=== PATIENT | male | born 1975 | race Hispanic/Latino ===

== ENCOUNTER 2020-03-09 10:12 | Emergency (ER) | payer SELFPAY ==
[2020-03-09 10:15] VITALS: BP 166/89
[2020-03-09 12:07] LABS: HEMATOCRIT 42.3 % (39.0-50.0); HEMOGLOBIN 14.4 g/dl (14.0-18.0); IMMATURE GRANULOCYTES 0.1 % (0.0-5.0); MEAN CELL VOLUME 89.4 fL CALC (80.0-100.0); MEAN CORPUSCULAR HGB 30.4 pG CALC (26.0-32.0); NEUT# 3.84 thou/uL (1.82-7.42); RED BLOOD COUNT 4.73 mill/uL (4.70-6.10); RED CELL DISTRI WIDTH 13.2 % (11.5-15.5)
[2020-03-09 12:09] LABS: URINE BILIRUBIN - DIPSTICK NEGATIVE (NEGATIVE); URINE BLOOD DIPSTICK NEGATIVE (NEGATIVE); URINE COLOR YELLOW; URINE GLUCOSE - DIPSTICK >=1000 mg/dL (NEGATIVE); URINE KETONE NEGATIVE (NEGATIVE); URINE LEUK ESTERASE NEGATIVE (NEGATIVE); URINE NITRITE - DIPSTICK NEGATIVE (Negative); URINE PH 5.5 (4.5-8.0); URINE PROTEIN - DIPSTICK NEGATIVE (NEG-TRACE); URINE UROBILINOGEN - DIPSTICK 0.2 E.U./dL (0.2)
[2020-03-09 12:23] LABS: ALBUMIN 4.4 g/dL (3.2-5.0); ALKALINE PHOSPHATASE 72 u/l (38-126); ANION GAP 13 (6-22 (CALC)); BILIRUBIN, TOTAL 0.9 mg/dL (0.0-1.4); BUN 11 mg/dL (9-20); BUN/CREATININE RATIO 12 (12-20 (CALC)); CARBON DIOXIDE 25 mmol/l (22-30); CHLORIDE 106 mmol/l (95-108); CREATININE 0.9 mg/dL (0.7-1.3); GFR > 60 ML/MIN (>=60 (CALC)); GFR FOR AFR.AMER. > 60 ML/MIN (>=60 (CALC)); LIPASE 196 u/l (23-300); SGOT/AST 52 u/l (17-59); SODIUM 140 mmol/l (137-146); TOTAL PROTEIN 8.1 g/dL (6.3-8.2)
[2020-03-09] MEDS ORDERED: AMOXICILLIN500 M2 PO (13:14)
== END 2020-03-09 13:45 | disposition home or self-care (01) | DRG 153 ==
LOC: ED 10:12
PROVIDERS: Family Medicine
DX: J06.9 Acute upper respiratory infection, unspecified (principal); E11.9 Type 2 diabetes mellitus without complications; Z20.828 Contact with and (suspected) exposure to other viral communicable diseases

== ENCOUNTER 2020-04-05 12:35 | Emergency (ER) | payer SELFPAY ==
[~2020-04-05] VITALS: Ht 175.3 cm; Wt 87.7 kg
[~2020-04-05 12:35] MED LIST: AMOXICILLIN500 M2 PO
[2020-04-05] MEDS ORDERED: ACTOS15 MG PO (13:26)
[2020-04-05] MEDS ORDERED: JANUMET1 TAB PO (13:26)
[2020-04-05] MEDS ORDERED: ATORVASTATIN CA10 MG PO (13:27)
[2020-04-05 14:27] VITALS: BP 150/86
--- NOTE | 2020-04-07 10:10 | NUR ---
PER JESSICA WISE RN, CONTACTED PATIENT AND GAVE POSITIVE COVID RESULTS. ADVISED PATIENT TO CONTINUE QUARANTINE UNTIL CONTACTED BY [facility]. ADVISED TO RETURN TO ER FOR ANY DIFFICULTY BREATHING OR ANY OTHER NEEDS. PT VERBALIZED UNDERSTANDING.
--- NOTE | 2020-04-07 10:55 | NUR ---
ATTEMPTED TO CONTACT PATIENT WITH COVID TEST RESULTS. DID NOT ANSWER, BUT LEFT VOICEMAIL TO RETURN CALL.
== END 2020-04-05 14:28 | disposition home or self-care (01) | DRG 178 ==
LOC: ED 12:35
DX: U07.1 COVID-19 (principal); R68.83 Chills (without fever); R51.9 Headache, unspecified; R61 Generalized hyperhidrosis; C85.90 Non-Hodgkin lymphoma, unspecified, unspecified site